=== PATIENT | female | born 1965 | race Caucasian/White ===

== ENCOUNTER 2017-06-26 10:06 | Outpatient (RCR) | payer MEDICAID, SELFPAY ==
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
--- NOTE | 2017-10-02 15:56 | HP.OT.NRP ---
HP - Discharge Summary - Patient Information GUNNER BUSTAMANTE was seen in my office for initial evaluation on 06/26/17. The following Plan of Care was established for this patient: Initial Frequency: 1-2x /Week Initial Duration: 2 Months - Anticipated Interventions Anticipated Interventions: A/AAROM/PROM, Scar Care, Sensory Retraining, Wound Care, Modalities, Orthoses This patient was last seen in our office 06/26/17. Pertinent comments regarding their Occupational therapy will appear below: Pt seen for eval only- pt did not return for further tx. pt d/c at this time. At this point I will be discontinuing this patient from occupational therapy. I would be happy to see this patient again in the future if found appropriate by the physician. Thank you! Susie Adrian, OTR/L, CHT
== END 2017-06-26 19:00 | disposition home or self-care (01) ==
LOC: OT 10:06
PROVIDERS: Family Provider Preventive Medicine Occupational Medicine; PCP Preventive Medicine Occupational Medicine; Visit Provider Orthopaedic Surgery Hand Surgery
DX: S66.321D Laceration of extensor muscle, fascia and tendon of left index finger at wrist and hand level, subsequent encounter (principal); S64.493 Injury of digital nerve of left middle finger
CPT/HCPCS: 97166; 97760